=== PATIENT | male | born 1955 | race Caucasian/White ===

== ENCOUNTER 2018-10-27 08:09 | Inpatient (IN) | payer BC ==
--- NOTE | 2018-10-27 08:38 | ED PDOC ---
Arrival/HPI - General Chief Complaint: Chest Pain Time Seen by Provider: 10/27/18 08:33 Historian: Patient, Spouse - History of Present Illness Narrative History of Present Illness (Text): 10/27/18 08:34 Patient with history of hypertension, Hyperlipidemia, AR S/P Stent x3 [address] Barbosa (on DAPT) who presents to [facility] emergency room for evaluation accompanied by his presents for chest pain x2 days. Patient reports the pain is "burning" in quality, localized to left of his sternum, non-radiating, and 8/10 in severity. Patient says the pain is intermittent with no provoking and/or alleviating factors. Patient admits to associated shortness of breath, but otherwise denies nausea, vomiting, diaphoresis, and/or headache. Catalog Library Assistant: Dr. Flowers Time/Duration: < week, Other (2 days ) Symptom Course: Intermittent Severity Level: 8 Activities at Onset: Rest Past Medical History - Provider Review Nursing Documentation Reviewed: Yes - Cardiac Hx AR: Yes Hx Hypertension: Yes - Psychiatric Hx Depression: No Hx Emotional Abuse: No Hx Physical Abuse: No Hx Substance Use: No - Surgical History Hx Coronary Stent: Yes (X3) - Suicidal Assessment Feels Threatened In Home Enviroment: No Family/Social History - Physician Review Nursing Documentation Reviewed: Yes Family/Social History: Unknown Family HX Smoking Status: Heavy Smoker > 10 Cigarettes Daily Hx Alcohol Use: No Hx Substance Use: No Hx Substance Use Treatment: No Allergies/Home Meds Allergies/Adverse Reactions: Allergies No Known Allergies Allergy (Verified 10/27/18 08:16) Home Medications: Home Meds Medication Instructions Recorded Confirmed Aspirin [Aspir 81] 81 mg PO DAILY 03/02/12 10/27/18 Ramipril 1 tab PO DAILY 03/19/14 10/27/18 Clopidogrel [Plavix] 75 mg PO DAILY 10/27/18 10/27/18 Ezetimibe [Zetia] 10 mg PO DAILY 10/27/18 10/27/18 Metoprolol Tartrate [Lopressor] 50 mg PO BID 10/27/18 10/27/18 Review of Systems - Review of Systems Constitutional: absent: Fatigue, Weight Change, Fevers Eyes: absent: Vision Changes ENT: absent: Hearing Changes Respiratory: SOB. absent: Cough, Sputum, Wheezing Cardiovascular: Chest Pain. absent: Palpitations, Edema, Calf Pain, Syncope Gastrointestinal: absent: Abdominal Pain, Stool Changes, Diarrhea, Nausea, Vomiting Genitourinary Male: Normal Musculoskeletal: Normal. absent: Back Pain, Neck Pain Skin: Normal Neurological: Normal Endocrine: absent: Diaphoresis Hemo/Lymphatic: Normal Physical Exam Vital Signs Temp Pulse Resp BP Pulse Ox 10/27/18 08:09 98.1 F 76 19 122/68 99 Temperature: Afebrile Blood Pressure: Normal Pulse: Regular Respiratory Rate: Normal Appearance: Positive for: Non-Toxic, Comfortable Pain Distress: None Mental Status: Positive for: Alert and Oriented X 3 - Systems Exam Head: Present: Atraumatic, Normocephalic Pupils: Present: PERRL Extroacular Muscles: Present: EOMI Conjunctiva: Present: Normal Mouth: Present: Moist Mucous Membranes Neck: Present: Normal Range of Motion Respiratory/Chest: Present: Clear to Auscultation, Good Air Exchange. No: Respiratory Distress, Accessory Muscle Use Cardiovascular: Present: Regular Rate and Rhythm, Normal S1, S2, Peripheal Pulses Present. No: Murmurs, Irregular Rhythm, Tachycardic, Bradycardic, Rub, Gallop, Muffled Abdomen: Present: Normal Bowel Sounds. No: Tenderness, Distention, Peritoneal Signs Back: Present: Normal Inspection Upper Extremity: Present: Normal Inspection, Normal ROM. No: Cyanosis, Edema Lower Extremity: Present: Normal Inspection. No: Edema Neurological: Present: GCS=15, CN II-XII Intact, Speech Normal Skin: Present: Warm, Dry, Normal Color. No: Rashes Medical Decision Making ED Course and Treatment: 10/27/18 08:48 Patient with history of hypertension, Hyperlipidemia, AR S/P Stent x3 in 2011 w radha Barbosa (on DAPT) who presents with chest pain x2 days PLAN: - Troponin I - CBC - CMP - Mg - Phos - Chest X-ray - TSH - EKG 10/27/18 09:52 - CBC: unremarkable - CMP: unremarkable (Troponin I = 0.03) - Chest X-ray unremarkable for acute disease (read by me) 10/27/18 09:[address] Zamarripa (Patient's PMD) to admit for observation under his service; pending call back. 10/27/18 10:[address] Zamarripa who accepts the Patient to be admitted for observation under his service. Requested to consult Dr. Flowers Cardiology. Disposition/Present on Arrival - Present on Arrival Any Indicators Present on Arrival: No History of DVT/PE: No History of Uncontrolled Diabetes: No Urinary Catheter: No History of Decub. Ulcer: No History Surgical Site Infection Following: None - Disposition Have Diagnosis and Disposition been Completed?: Yes Diagnosis: Chest pain Disposition: HOSPITALIZED Disposition Time: 10:51 Patient Plan: Observation Condition: FAIR Discharge Instructions (ExitCare): Chest Pain (ED) Forms: [employer] (Malagasy)
[2018-10-27 09:23] LABS: BASO # 0.04 K/mm3 (0.0-2.0); BASO % 0.6 % (0.0-3.0); EOS # 0.4 (0.0-0.7); EOS % 6.4 % (1.5-5.0); LYMPH # 2.3 (1.2-3.4); LYMPH % 35.5 % (22.0-35.0); MEAN CELL VOLUME 91.6 fl (80.0-105.0); MEAN CORPUSCULAR HEMOGLOBIN 30.7 pg (25.0-35.0); MEAN CORPUSCULAR HGB CONC 33.5 g/dl (31.0-37.0); MEAN PLATELET VOLUME 10.4 fl (7.0-11.0); MONO # 0.6 (0.1-0.6); MONO % 9.6 % (1.0-6.0); RBC 4.89 10^6/uL (3.5-6.1); WHITE BLOOD COUNT 6.6 10^3/uL (4.5-11.0)
[2018-10-27 09:31] LABS: ALB/GLOB RATIO 1.3 (1.1-1.8); ALBUMIN 3.8 g/dL (3.0-4.8); ALT/SGPT 26 U/L (7-56); AST/SGOT 29 U/L (17-59); BLOOD UREA NITROGEN 17 mg/dL (7-21); GFR NON-AFRICAN AMERICAN > 60; INR 1.14; PARTIAL THROMBOPLASTIN TIME 29.7 Seconds (26.9-38.3); PROTHROMBIN TIME 12.9 SECONDS (9.4-12.5)
[2018-10-27 09:42] LABS: TROPONIN I 0.03 ng/mL
--- NOTE | 2018-10-27 12:03 | RAD ---
Date of service: 10/27/2018 HISTORY: Chest pain COMPARISON: No prior. FINDINGS: LUNGS: No active pulmonary disease. PLEURA: No significant pleural effusion identified, no pneumothorax apparent. CARDIOVASCULAR: No atherosclerotic calcification present No radiographic findings to suggest acute or significant cardiovascular disease. OSSEOUS STRUCTURES: No significant abnormalities. VISUALIZED UPPER ABDOMEN: Normal. OTHER FINDINGS: None. IMPRESSION: No active disease.
[2018-10-27] MEDS ORDERED: Pneumococcal 23-Valent Vaccine IM ONE (17:41)
[2018-10-27] MEDS ORDERED: Influenza Vaccine 60 mcg/0.5 mL SYR (4YR UP) IM ONE (17:41)
[2018-10-27 17:42] VITALS: BMI 24.4
[2018-10-27 17:47] LABS: TROPONIN I 0.07 ng/mL
[2018-10-27] MEDS ORDERED: Arformoterol 15 mcg/2 ml Inh Sol IH SCH (20:00)
[2018-10-27] MEDS: Arformoterol 15 mcg/2 ml Inh Sol IH SCH (20:22)
[2018-10-27] MEDS: Budesonide 0.5 mg/2 ml Inhal Susp UD IH SCH (20:22)
[2018-10-27 22:34] LABS: OPIATES, UR NEGATIVE (NEGATIVE)
[2018-10-27 22:51] LABS: BARBITURATES, UR NEGATIVE (NEGATIVE); BENZODIAZEPINES, UR NEGATIVE (NEGATIVE); PHENCYCLIDINE, UR NEGATIVE (NEGATIVE)
[2018-10-28] MEDS: Budesonide 0.5 mg/2 ml Inhal Susp UD IH SCH ×2 (07:55→20:21)
[2018-10-28] MEDS: Arformoterol 15 mcg/2 ml Inh Sol IH SCH ×2 (07:55→20:21)
[2018-10-28] MEDS ORDERED: Enoxaparin 40 mg Syringe SC SCH (10:00)
--- NOTE | 2018-10-28 10:28 | CARD ---
APPROVED REPORT Date of service: 10/27/2018 EKG Measurement Heart [id number] <Conclusion> Normal sinus rhythm Septal infarct, age undetermined Abnormal ECG
--- NOTE | 2018-10-28 11:55 | US ---
Date of service: 10/28/2018 HISTORY: Chest pain, dyspepsia. COMPARISON: None. TECHNIQUE: Sonographic evaluation of the right upper quadrant of the abdomen. FINDINGS: LIVER: Measures 14.6 cm in length. Hepatopedal blood flow. Fatty infiltration manifest ultrasonographically as increased echogenicity of the liver parenchyma. No mass. No intrahepatic bile duct dilatation. GALLBLADDER: Unremarkable. No gallstones. COMMON BILE DUCT: Measures 0.6 mm. No stones. No dilatation. PANCREAS: Unremarkable as visualized. No mass. No ductal dilatation. RIGHT KIDNEY: Measures 5.5 x 11.7 cm in length. Normal echogenicity. No calculus, mass, or hydronephrosis. Incidental subcentimeter cyst midpole region AORTA: No aneurysmal dilatation. IVC: Unremarkable. OTHER FINDINGS: None . IMPRESSION: No significant or acute findings to account for/ related to the clinical presentation.
--- NOTE | 2018-10-28 20:06 | PN ---
DATE: 10/28/2018 SUBJECTIVE: The patient was seen today on 10/28/2018. He is comfortable. In no distress. He did get some chest discomfort last night. He got 3 nitroglycerin with no relief. The patient has no other complaints. PHYSICAL EXAMINATION VITAL SIGNS: Temperature 98.3, heart rate 66, blood pressure 113/75, respirations 20, saturating 97% on room air. HEAD AND NECK: Normal. No JVD. No thyromegaly. CHEST: Clear bilateral. CARDIAC: First sound and second sound normal. No murmur, rub or gallop. ABDOMEN: Soft, nontender. EXTREMITIES: No edema. NEUROLOGICAL: Normal. LABORATORY DATA: His troponin 0.03 and repeat 0.07 and last one 0.05. TSH 1.1. IMPRESSION AND PLAN: 1. Chest pain, etiology unclear. Cardiology, Dr. Perry seen the patient today. We will see his recommendations. We will keep the patient n.p.o. after midnight for possible nuclear stress test in the morning. The patient is still complaining of chest pain as per last night. Ultrasound of the gallbladder was negative and Pepcid was added at night with no relief of his symptoms. We will continue to monitor his condition. 2. Tobacco addiction. 3. Hypercholesteremia. 4. Chronic obstructive pulmonary disease. 5. Chronic osteoarthritis. Continue current medications. We will follow up clinically. CURRENT MEDICATIONS: Altace 5 mg, Brovana and Pulmicort, Lipitor 80 mg, Lopressor 50 mg b.i.d., Lovenox 40 mg subcu, Nicoderm every one daily, Plavix 75 mg, Protonix 40, Ultram 50 mg every 6 hours, and Zetia 10 mg. PLAN: Continue current medications. We will discuss results with Dr. Perry. Pollo Zamarripa MD cc: Cynthia Flowers MD
--- NOTE | 2018-10-29 01:48 | CON ---
DATE: 10/28/2018 CARDIOLOGY CONSULTATION REASON FOR CONSULTATION: Chest pain. HISTORY OF PRESENT ILLNESS: The patient is a 63-year-old [place] male who has a history of coronary artery disease, history of coronary stenting 3 times in the past, most recent one was in 2011. The patient was recommended to undergo cardiac catheterization after positive stress test, but he refused. The patient is in because of recurring burning retrosternal chest pain. The patient continues to smoke almost a pack daily, but claims to be compliant with his medications. SOCIAL HISTORY: This patient is a smoker, nondrinker. , lives with his . MEDICATIONS: Altace 5 mg once a day, Brovana 15 mcg inhalation q.12h., aspirin 81 mg once a day, Lipitor 80 mg once a day, Lopressor 25 mg once a day, subcutaneous Lovenox 40 g daily, Nicoderm patch, Protonix 40 mg intravenously once a day, Plavix 75 g once a day. REVIEW OF SYSTEMS: No nausea or vomiting. No fever or chills. No dizziness or syncope. PAST MEDICAL HISTORY: Coronary artery disease, status post coronary stenting. PHYSICAL EXAMINATION: GENERAL: The patient is a middle-aged male who does not appear to be in acute distress. VITAL SIGNS: Blood pressure 129/86, heart rate 66, temperature 98.3, respirations 20. HEENT: Normocephalic. CHEST: Clear. HEART: S1, S2 regular. ABDOMEN: Soft. EXTREMITIES: No edema. LABORATORY DATA: Three sets of troponins were as follows: 0.03, 0.07, and 0.05. SMA-7 is within normal limits except for glucose 121 and creatinine 0.6. TSH level is within normal limits. Urine drug screen is negative. Hemoglobin, hematocrit, white count and platelet count are within normal limits. EKG revealed sinus rhythm with old septal infarct. ASSESSMENT: 1. Chest pain with borderline troponin elevation, consider underlying coronary artery disease. 2. Hypertension and hyperlipidemia. RECOMMENDATIONS: Continue current aspirin 81 mg once a day, Plavix 75 mg once a day, Lovenox 40 mg subcutaneous once a day, Lopressor 50 mg twice a day, Altace 5 mg once a day, Zetia 10 mg once a day. The patient was advised to undergo cardiac catheterization. However, he refused and he did state to me that he refused that in the past. The patient was instructed to wait until he is further evaluated by his assistant front office manager, Dr. Flowers tomorrow. Uriel Perry MD
--- NOTE | 2018-10-29 07:48 | CP.PCM.PN ---
Subjective - Date & Time of Evaluation Date of Evaluation: 10/29/18 Time of Evaluation: 06:15 - Subjective Subjective: Awake, alert, ambulating to bathroom, denies chest pain Reason for consultation and follow up: Cardiac evaluation of chest pain, history of coronary artery disease post stents Seen and examined by me and Dr. Cheng Objective - Vital Signs/Intake and Output Vital Signs (last 24 hours): Temp Pulse Resp BP Pulse Ox 98.3 F 67 16 109/72 95 10/29/18 00:01 10/29/18 05:51 10/29/18 00:01 10/29/18 00:01 10/29/18 00:01 Intake and Output: 10/29/18 10/29/18 06:59 18:59 Intake Total 960 Balance 960 - Medications Medications: Current Medications Arformoterol Tartrate (Brovana) 15 mcg [facility] [id number] [facility] Last Admin: 10/28/18 20:21 Dose: 15 mcg Aspirin (Ecotrin) 81 mg PO DAILY [facility] Last Admin: 10/28/18 11:16 Dose: 81 mg Atorvastatin Calcium (Lipitor) 80 mg PO DIN [facility] Last Admin: 10/28/18 17:57 Dose: 80 mg Budesonide (Pulmicort Respules) 0.5 mg [facility] [id number] [facility] Last Admin: 10/28/18 20:21 Dose: 0.5 mg Clopidogrel Bisulfate (Plavix) 75 mg PO DAILY [facility] Last Admin: 10/28/18 11:18 Dose: 75 mg Ezetimibe (Zetia) 10 mg PO DAILY [facility] Last Admin: 10/28/18 11:18 Dose: 10 mg Enoxaparin Sodium (Lovenox) 40 mg SC DAILY [facility]; Protocol Last Admin: 10/28/18 11:17 Dose: 40 mg Famotidine (Pepcid) 40 mg PO HS [facility] Last Admin: 10/28/18 21:26 Dose: 40 mg Metoprolol Tartrate (Lopressor) 50 mg PO BID [facility] Last Admin: 10/28/18 17:58 Dose: 50 mg Nicotine (Nicoderm Cq) 1 patch TD DAILY [facility] Last Admin: 10/28/18 11:17 Dose: 1 patch Pantoprazole Sodium (Protonix Inj) 40 mg IVP DAILY [facility] Last Admin: 10/28/18 11:18 Dose: 40 mg Ramipril (Altace) 5 mg PO DAILY [facility] Last Admin: 10/28/18 11:16 Dose: 5 mg Tramadol HCl (Ultram) 50 mg PO Q6H PRN PRN Reason: mod to severe pain Last Admin: 10/28/18 21:26 Dose: 50 mg - Labs Labs: 10/27/18 08:50 10/27/18 08:50 PT 12.9 SECONDS (9.4-12.5) H 10/27/18 08:50 INR 1.14 10/27/18 08:50 APTT 29.7 Seconds (26.9-38.3) 10/27/18 08:50 - Constitutional Appears: Non-toxic, No Acute Distress - Head Exam Head Exam: NORMAL INSPECTION, NORMOCEPHALIC - Eye Exam Eye Exam: Normal appearance Pupil Exam: NORMAL ACCOMODATION - ENT Exam ENT Exam: Mucous Membranes Moist, Normal Exam - Respiratory Exam Respiratory Exam: Decreased Breath Sounds, Clear to Ausculation Bilateral, NORMAL BREATHING PATTERN - Cardiovascular Exam Cardiovascular Exam: REGULAR RHYTHM, +S1, +S2 Additional comments: denies chest pain - GI/Abdominal Exam GI & Abdominal Exam: Soft, Normal Bowel Sounds - Extremities Exam Extremities Exam: Full ROM, Normal Capillary Refill - Neurological Exam Neurological Exam: Alert, Awake, Oriented x3 - Psychiatric Exam Psychiatric exam: Normal Affect, Normal Mood - Skin Skin Exam: Dry, Normal Color, Warm Assessment and Plan - Assessment and Plan (Free Text) Assessment: A 63 year old male who came in to the ER due to complaints of localized left non-radiating chest pain for the past 2 days. History of hypertension, hyp erlipidemia, coronary artery disease post stents, current smoker. Indeterminate Troponin on admission. Stress test done last 03/19/14 showed fixed abnormal distal anterior and apicla defects suggestive of previous [place]. LVEF 76%. No recent echocardiogram. Will order echo. For cardiac catheterization today. Dr. Cheng explained risk and benefits of procedure. Plan: Denies chest pain, For echo today to evaluate LV function For cardiac catheterization to evaluate coronary disease Heart rate stable Blood pressure stable On ASA 81 mg daily, Lipitor 80 mg daily,Plavix 75 mg daily Altace 5 mg daily,Lovenox 40 mg daily, Lopressor 50 mg BID Nicotine patch daily Continue current treatment Continue current medications Smoking cessation Will follow up Further recommendations post cardiac catheterization Plan and treatment discussed with Dr. cheng
[2018-10-29] MEDS: Budesonide 0.5 mg/2 ml Inhal Susp UD IH SCH ×2 (08:10→19:35)
[2018-10-29] MEDS: Arformoterol 15 mcg/2 ml Inh Sol IH SCH ×2 (08:10→19:35)
--- NOTE | 2018-10-29 08:20 | HP ---
DATE OF EXAM: 10/27/2018 Sofia is a 63-year-old male who came in with the main complaint of chest pain complaints. The admit is dated 10/25/2018. The patient was seen on 10/27/2018. CHIEF COMPLAINT: Main complaint chest pain. HISTORY OF PRESENT ILLNESS: This is a 63-year-old male with history of cardiac stenting, history of [place] past 6 years ago with cardiac stenting. He has been on Plavix, cholesterol medications. He is actively smoking, came in with left side chest pain intermittently for the last month, pain is more on the left side and it goes up a little bit in the arm, but no short of breath. No nausea and no sweating. He did feel sometimes occasionally palpitations. No other symptoms. He is noncompliant with the outpatient care, last time seeing Cardiology more than 2 years ago. ALLERGIES: NO KNOWN ALLERGIES. SOCIAL HISTORY: Still smoking. No drinking. FAMILY HISTORY: Noncontributory. HOME MEDICATIONS: He takes Altace 5 mg once a day, aspirin 81 mg, Lipitor 80 mg, Lopressor 50 mg b.i.d., Plavix 75 mg once a day, Protonix 40 mg once a day, Tramadol every 6 hours p.r.n. and Zetia 10 mg once a day. REVIEW OF SYSTEMS: Noted for joint pain, knee pain, back pain, shoulder pain and sometimes chronic cough. No other symptoms. The rest of the exam is negative. He does sometimes complain of chest burning, this especially at night, waking him at night sometimes. Rest of review of systems is negative. LABORATORY DATA: White count 6.6, hemoglobin 15, hematocrit 44.8 and platelet 227. Chemistry; sodium 141, potassium 3.7, chloride 106, bicarb 26, BUN 17, creatinine 0.6, blood sugar 121, calcium 9, phosphorous 3.3, magnesium 2.1 and total bili 0.3. AST, ALT and alk phos is normal. Lactate dehydrogenase is 4000, total CK 111 and troponin 0.03. The patient has an EKG, which shows anterior infarction is age undetermined, normal sinus rhythm, QTC 429. Chest x-ray; the patient had chest x-ray that shows largely active pulmonary disease. IMPRESSION AND PLAN: This is a 63-year-old male, actively smoking who had a history of cardiac disease, history of myocardial infarction, history of cardiac stenting more than 5 years ago. 1. The patient came in with left side chest pain intermittently getting worse. Pain sometimes waking him up from sleep, sometimes there is burning in the chest, seemed recurrent, more frequent than before. We will admit the patient for cardiac evaluations with chest pain. We will get serial cardiac enzymes. We will get Cardiology consult with Dr. Flowers. 2. The patient also has hypercholesteremia, hypertension, chronic knee osteoarthritis. Still actively tobacco smoking, I spoke with him about quitting. We will continue that. We will rule out gastrointestinal etiology, we are going to add Pepcid 40 mg at bedtime. We will get an ultrasound of his gallbladder. We will advise to be 2 hours before going asleep. We will continue to monitor his symptoms. The patient will need a cardiac evaluation probably including a stress test because of high risk cardiac disease. Pollo Zamarripa MD
[2018-10-29] MEDS ORDERED: Lidocaine PF 2% (5 ml) Inj (For Cardiac Arrhy) ONE (14:24)
[2018-10-29] MEDS ORDERED: Verapamil 2 ML ONE (14:25)
[2018-10-29] MEDS ORDERED: Iohexol 350mgl/ml 50 ML ONE (14:25)
[2018-10-29] MEDS ORDERED: Iodixanol 320 MG/ML 200 ML BOTTLE IV ONE (14:25)
[2018-10-29] MEDS ORDERED: Heparin 2,000 ML IV ONE (14:26)
[2018-10-29] MEDS ORDERED: Midazolam 2 MG/2 ML VIAL ONE (14:35)
[2018-10-29] MEDS ORDERED: Eptifibatide 20 mg/10mL Inj IVP ONE (15:01)
[2018-10-29] MEDS ORDERED: Morphine 2 mg/ml ISec ONE (15:42)
[2018-10-29] MEDS ORDERED: Sodium Chloride 0.9% 1,000 ML IV SCH (16:00)
--- NOTE | 2018-10-29 16:42 | CPOSTOP ---
DATE: 10/29/2018 CARDIOVASCULAR LAB POSTPROCEDURE NOTE PHYSICIAN: Dr. Óscar Flowers. SOLICITING FREIGHT AGENT: RAY Victor. TYPE OF ANESTHESIA: Moderate conscious sedation total 2 mg of morphine, 3 mg of versed, 100 of fentanyl given, periodically. Started 1 mg Versed and 50 of fentanyl. PRE-PROCEDURE DIAGNOSIS: Unstable angina. PROCEDURE PERFORMED: 1. Left heart catheterization. 2. Stenting of proximal to mid LAD for in-stent restenosis. 3. Stenting of proximal RCA in-stent restenosis. FINDINGS: Two vessel disease 99% proximal LAD and proximal RCA in-stent restenosis 95 to 99% stenosis, preserved LV function. FINAL DIAGNOSES: Two vessels critical disease, proximal mid left anterior descending and proximal right coronary artery in-stent restenosis. POST PROCEDURE CONDITION: The patient's condition is stable. VASCULAR ACCESS SITE: Left radial. CLOSING DEVICE: TR-band. TOTAL RADIATION DOSE: 16820.40 milligray unit. FLUORO TIME: 14.3 minutes. Cynthia Flowers MD
[2018-10-29] MEDS: Morphine 2 mg/ml ISec IVP PRN ×2 (16:44→22:54)
--- NOTE | 2018-10-29 19:02 | CARD ---
APPROVED REPORT Date of service: 10/29/2018 Procedure(s) performed: Left Heart Catheterization PTCA with Stenting of Miod LAD with DANTE PTCA with Stenting of Proximal RCA with DANTE PRU..... 102 ( pt is sensitive to Plavix). HISTORY The patient is a 63 year-old male with a history of : previous HI (> 7 days), previous diagnostic cath, tobacco history() : The patient is a current smoker , previous PCI (The PCI date was 01/2009), hypertension , dyslipidemia , Hx of anteror wall HI( STEMI) 01/2009 and primary PTCA of LAD then staged PTCa of RCA in four weeks and had repeat cath on 08/03/2009 b/c of abnormal stress test, cath revealed patent Stents in LAD and RCA, who is active 1/2 to one pack smoker admitted with ACS/. Unsstable angia.. INDICATION The indication(s) include : unstable angina , non-STEMI . CASE TECHNIQUE The patient was brought urgently to the Cardiac Catheterization Laboratory in a fasting state and was prepped and draped in a sterile manner. The left wrist was infiltrated with 2% Lidocaine subcutaneous anesthesia. A 6FR GLIDESHEATH ACCESS KIT sheath was inserted into the left radial artery without difficulty. Coronary angiography was performed using coronary diagnostic catheters. The left coronary system was accessed and visualized with a Diagnostic ,5F JL 4 CATH DXT 100 CM catheter. The right coronary system was accessed and visualized with a Diagnostic ,5F JL 4 CATH DXT 100 CM catheter. The left ventricle was accessed and visualized with a 5F PIGTAIL 145 CATH DXT 110 CM catheter. Left ventricular/Aortic Valve gradient assessed on pullback. Left ventriculogram was performed in ABDALLA projection. Closure device was deployed with a Fr TR Band (Regular) without any complications. The patient tolerated the procedure well and there were no complications associated with the procedure. Vessel Analysis The patient's coronary anatomy is right dominant. The left main coronary artery is a large size vessel with diffuse calcification noted throughout this vessel and without significant stenosis. The left main bifurcates to the left anterior descending and circumflex. The left anterior descending artery is a medium size vessel with diffuse calcification noted throughout this vessel and with significant stenosis. There is a 99% stenosis in the mid segment. Instent restenosis The first diagonal branch is a small size vessel with diffuse calcification noted throughout this vessel and without significant stenosis. The second diagonal branch is a medium size vessel with diffuse calcification noted throughout this vessel and without significant stenosis. The third diagonal branch is a small size vessel with diffuse calcification noted throughout this vessel and without significant stenosis. First septal lead inspector has 80-90% stenosis. The circumflex artery is a medium size vessel with diffuse calcification noted throughout this vessel and without significant stenosis. The first obtuse marginal branch is a large size vessel with diffuse calcification noted throughout this vessel and without significant stenosis. The right coronary artery is a large size vessel with diffuse calcification noted throughout this vessel and with significant stenosis. There is a 95% stenosis in the proximal segment. Instent restenosis.Distal RCVA has 30-40% stenosis. The right posterior descending artery is a medium size vessel with diffuse calcification noted throughout this vessel and without significant stenosis. The right posterolateral branch is a small size vessel with diffuse calcification noted throughout this vessel and without significant stenosis. Left Ventricle The left ventricle is normal in size with normal contractility. There was no cardiomyopathy. The left ventricular ejection fraction is estimated to be 55-60%. The left ventricular end diastolic pressure is 14 mmHg. PCI Technique Lesion Anticoagulation was achieved with Heparin and Integrellin bolous. Percutaneous coronary intervention was performed on the proximal left anterior descending artery segment. The lesion stenosis prior to intervention was 99% with CARINE 2 flow. A 6 Fr XB 3.5 Guide Catheter was used to engage the ostium. A Luge 182 Interventional Guidewire was used to cross the lesion. BALLOON DILATION A Balloon catheter 2.5 x 12 mm Sprinter RX was inserted and inflated up to 12atm for 21seconds. STENT DEPLOYMENT A drug-eluting stent STENT RESOLUTE JUSTYNA 2.75 X18 was inserted and inflated up to 14.00atm for 12seconds. Final angiography reveals 0 % stenosis with CARINE 3 flow. PCI Technique Lesion 2 Percutaneous Coronary Intervention was performed on the proximal right coronary artery. The lesion stenosis prior to intervention was 95% with CARINE 2 flow. A 6 Fr XB 3.5 Guide Catheter was used to engage the ostium. BALLOON DILATION A Balloon catheter 2.5 x 12 mm Sprinter RX was inserted and inflated up to 16.00atm for 2seconds. STENT DEPLOYMENT A drug-eluting stent STENT RESOLUTE JUSTYNA 3.0 X 12 was inserted and inflated up to 16.00atm for 2seconds. Final angiography reveals 0 % stenosis with CARINE 3 flow. Conclusion Two vessel CAD Mid LAD and proximal RCA Instent restenosis. Preserved LV Fx. EF-55-60%, EDP-14 mmof Hg. First septal lead inspector has 80-90% stenosis. Successful PTCA with DANTE Of LAD aqnd RCA. PRU-102.... ( pt is sensitive to plavix) Recommendations Smoking Cessation Daily ASA with Plavix for at least one year Aggressive Medical TherapyCardiac Risk Reduction Program Weight Loss Reduction Program CC; dr. Zamarripa
[2018-10-29 20:05] LABS: BLOOD UREA NITROGEN 16 mg/dL (7-21); CALCIUM 8.9 mg/dL (8.4-10.5); GFR NON-AFRICAN AMERICAN > 60
[2018-10-29 20:12] LABS: BASO # 0.02 K/mm3 (0.0-2.0); BASO % 0.2 % (0.0-3.0); EOS % 0.3 % (1.5-5.0); HEMOGLOBIN 14.4 g/dL (14.0-18.0); LYMPH # 1.3 (1.2-3.4); LYMPH % 11.6 % (22.0-35.0); MEAN CELL VOLUME 91.6 fl (80.0-105.0); MEAN CORPUSCULAR HEMOGLOBIN 30.3 pg (25.0-35.0); MEAN PLATELET VOLUME 10.2 fl (7.0-11.0); MONO # 0.4 (0.1-0.6); MONO % 3.9 % (1.0-6.0); RBC 4.76 10^6/uL (3.5-6.1); RED CELL DISTRIBUTION WIDTH 14.1 % (11.5-14.5); WHITE BLOOD COUNT 10.9 10^3/uL (4.5-11.0)
[2018-10-29] MEDS ORDERED: Bacitracin 500 Units/gm Oint Foilpak UD ONE (20:37)
--- NOTE | 2018-10-29 22:37 | CARD ---
APPROVED REPORT Date of service: 10/29/2018 EKG Measurement Heart [id number] <Conclusion> Normal sinus rhythm Left anterior fascicular block Septal infarct, age undetermined Abnormal ECG
[2018-10-30 07:15] LABS: BASO # 0.02 K/mm3 (0.0-2.0); BASO % 0.2 % (0.0-3.0); EOS # 0.1 (0.0-0.7); HEMOGLOBIN 14.1 g/dL (14.0-18.0); LYMPH # 3.1 (1.2-3.4); LYMPH % 27.6 % (22.0-35.0); MEAN CELL VOLUME 90.7 fl (80.0-105.0); MEAN CORPUSCULAR HEMOGLOBIN 29.7 pg (25.0-35.0); MEAN CORPUSCULAR HGB CONC 32.8 g/dl (31.0-37.0); MEAN PLATELET VOLUME 10.4 fl (7.0-11.0); MONO # 0.7 (0.1-0.6); MONO % 6.3 % (1.0-6.0); RBC 4.74 10^6/uL (3.5-6.1); RED CELL DISTRIBUTION WIDTH 14.1 % (11.5-14.5); WHITE BLOOD COUNT 11.3 10^3/uL (4.5-11.0)
[2018-10-30 07:30] LABS: ALB/GLOB RATIO 1.3 (1.1-1.8); ALBUMIN 3.6 g/dL (3.0-4.8); ALT/SGPT 24 U/L (7-56); AST/SGOT 46 U/L (17-59); BLOOD UREA NITROGEN 12 mg/dL (7-21); CALCIUM 8.9 mg/dL (8.4-10.5); GFR NON-AFRICAN AMERICAN > 60
--- NOTE | 2018-10-30 07:32 | CP.PCM.PN ---
Subjective - Date & Time of Evaluation Date of Evaluation: 10/30/18 Time of Evaluation: 06:15 - Subjective Subjective: Awake, alert, some chest discomfort, denies chest pain Reason for consultation and follow up: Cardiac evaluation of chest pain, history of coronary artery disease post stents, post cardiac catheterization and post PTCA with DANTE of LAD and RCA. Seen and examined by me and Dr. Flowers Objective - Vital Signs/Intake and Output Vital Signs (last 24 hours): Temp Pulse Resp BP Pulse Ox 98.2 F 92 H 18 100/69 94 L 10/30/18 05:14 10/30/18 05:14 10/30/18 05:14 10/30/18 05:14 10/30/18 05:14 Intake and Output: 10/30/18 10/30/18 06:59 18:59 Intake Total 540 Balance 540 - Medications Medications: Current Medications Arformoterol Tartrate (Brovana) 15 mcg IH [id number] [facility] Last Admin: 10/29/18 19:35 Dose: 15 mcg Aspirin (Ecotrin) 81 mg PO DAILY [facility] Last Admin: 10/29/18 09:31 Dose: 81 mg Atorvastatin Calcium (Lipitor) 80 mg PO DIN [facility] Last Admin: 10/29/18 17:55 Dose: 80 mg Budesonide (Pulmicort Respules) 0.5 mg IH [id number] [facility] Last Admin: 10/29/18 19:35 Dose: 0.5 mg Clopidogrel Bisulfate (Plavix) 75 mg PO DAILY [facility] Last Admin: 10/29/18 09:33 Dose: 75 mg Ezetimibe (Zetia) 10 mg PO DAILY [facility] Last Admin: 10/29/18 17:55 Dose: 10 mg Enoxaparin Sodium (Lovenox) 40 mg SC DAILY [facility]; Protocol Last Admin: 10/28/18 11:17 Dose: 40 mg Famotidine (Pepcid) 40 mg PO HS [facility] Last Admin: 10/29/18 21:33 Dose: 40 mg Isosorbide Mononitrate (Imdur) 30 mg PO DAILY [facility] Metoprolol Tartrate (Lopressor) 50 mg PO BID [facility] Last Admin: 10/29/18 17:55 Dose: 50 mg Morphine Sulfate (Morphine) 2 mg IVP Q6H PRN PRN Reason: Pain, severe (8-10) Last Admin: 10/29/18 22:54 Dose: 2 mg Nicotine (Nicoderm Cq) 1 patch TD DAILY [facility] Last Admin: 10/29/18 09:33 Dose: 1 patch Pantoprazole Sodium (Protonix Ec Tab) 40 mg PO ACB ROSA MARIA Ramipril (Altace) 5 mg PO DAILY [facility] Last Admin: 10/29/18 17:55 Dose: 5 mg Tramadol HCl (Ultram) 50 mg PO Q6H PRN PRN Reason: Pain, moderate (4-7) Last Admin: 10/29/18 18:13 Dose: 50 mg - Labs Labs: 10/30/18 06:00 10/29/18 19:50 PT 12.9 SECONDS (9.4-12.5) H 10/27/18 08:50 INR 1.14 10/27/18 08:50 APTT 29.7 Seconds (26.9-38.3) 10/27/18 08:50 - Constitutional Appears: Non-toxic, No Acute Distress - Head Exam Head Exam: NORMAL INSPECTION, NORMOCEPHALIC - Eye Exam Eye Exam: Normal appearance Pupil Exam: NORMAL ACCOMODATION - ENT Exam ENT Exam: Mucous Membranes Moist, Normal Exam - Respiratory Exam Respiratory Exam: Decreased Breath Sounds, Clear to Ausculation Bilateral, NORMAL BREATHING PATTERN - Cardiovascular Exam Cardiovascular Exam: REGULAR RHYTHM, +S1, +S2 Additional comments: denies chest pain, some discomfort - GI/Abdominal Exam GI & Abdominal Exam: Soft, Normal Bowel Sounds - Extremities Exam Extremities Exam: Full ROM, Normal Capillary Refill Additional comments: left radial no hematoma, positive pulses, no bleeding - Neurological Exam Neurological Exam: Alert, Awake, Oriented x3 - Psychiatric Exam Psychiatric exam: Normal Affect, Normal Mood - Skin Skin Exam: Dry, Normal Color, Warm Assessment and Plan - Assessment and Plan (Free Text) Assessment: A 63 year old male who came in to the ER due to complaints of localized left non-radiating chest pain for the past 2 days. History of hypertension, hyperlipidemia, coronary artery disease post stents, current smoker. Indeterminate Troponin on admission. Stress test done last 03/19/14 showed fixed abnormal distal anterior and apical defects suggestive of previous CA. LVEF 76%. For Echo to evaluate LV function. Post cardiac catheterization yesterday with two vessel coronary artery disease, Mid LAD and Proximal RCA instent restenosis, successful PTCA with DANTE of LAD and RCA via left radial. Complaining some chest discomfort probably from coronary spasm post procedure, will start Imdur. Denies chest pain. Cardiac status stable. Discharge planning. Plan: Post cardiac catheterization and PTCA with DANTE of LAD and RCA Denies chest pain, some chest discomfort Started on Imdur For echo today to evaluate LV function Heart rate stable Blood pressure stable Cardiac status stable Will discontinue telemetry May discharge from cardiac standpoint On ASA 81 mg daily, Lipitor 80 mg daily,Plavix 75 mg daily Altace 5 mg daily,Lovenox 40 mg daily, Lopressor 50 mg BID Nicotine patch daily Continue current treatment Continue current medications Smoking cessation Discharge planning, follow up in office Will follow up Plan and treatment discussed with Dr. Flowers
[2018-10-30] MEDS: Budesonide 0.5 mg/2 ml Inhal Susp UD IH SCH ×2 (07:34→19:50)
[2018-10-30] MEDS: Arformoterol 15 mcg/2 ml Inh Sol IH SCH ×2 (07:34→19:50)
[2018-10-30] MEDS: Pantoprazole 40 mg EC Tab PO SCH (08:35)
--- NOTE | 2018-10-30 11:40 | CT ---
Date of service: 10/30/2018 PROCEDURE: CT Chest without contrast HISTORY: chest pain COMPARISON: Chest x-ray 10/27/2018 TECHNIQUE: Contiguous axial images were obtained through the chest without intravenous contrast enhancement. Sagittal and coronal reconstructions were performed. Radiation dose: Total exam DLP = 485.8 mGy-cm. This CT exam was performed using one or more of the following dose reduction techniques: Automated exposure control, adjustment of the mA and/or kV according to patient size, and/or use of iterative reconstruction technique. FINDINGS: LUNGS: There is a large dense soft tissue mass in the left lung apex which measures 56 Hounsfield units in density. This measures 6.2 cm height by 7.1 cm wide by 7.8 cm AP. This finding was not present on the recent chest x-ray. This is suspicious for a hematoma. The patient had recent cardiac catheterization. Clinical correlation is suggested regarding the access route for catheterization. MEDIASTINUM: Unremarkable thoracic aorta. No aneurysm. Normal sized heart. Main pulmonary artery unremarkable. No vascular congestion. No lymphadenopathy. No aortic atherosclerotic calcification. PLEURA: There is a small left-sided pleural effusion BONES: No fracture. No destructive lesion. UPPER ABDOMEN: Grossly unremarkable. OTHER FINDINGS: Dr. Zamarripa was paged regarding with these results at 11:30 a.m. IMPRESSION: There is a large dense soft tissue mass in the left lung apex which measures 56 Hounsfield units in density. This measures 6.2 cm height by 7.1 cm wide by 7.8 cm AP. This finding was not present on the recent chest x-ray. This is suspicious for hematoma. The patient had recent cardiac catheterization. Clinical correlation is suggested regarding the access route for catheterization.
--- NOTE | 2018-10-30 13:47 | PN ---
DATE: 10/29/2018 SUBJECTIVE: The patient is status post cardiac catheterization with two stents . The patient still has some chest pain. According to Dr. Flowers, the chest pain he has now is different than . The patient is otherwise stable. PHYSICAL EXAMINATION: VITAL SIGNS: Temperature 98, heart rate 93, blood pressure 122/82, respirations 18, saturation 96% on room air. HEAD AND NECK: Normal. No JVD. No thyromegaly. CHEST: Clear bilateral. CARDIAC: First sound and second sound normal. No murmur, rub or gallop. ABDOMEN: Soft, nontender. EXTREMITIES: No edema. NEUROLOGICAL: Normal. LABORATORY DATA: White count 10.9, hemoglobin 15.4, hematocrit 43.6, platelets 210. Chemistry: Sodium 139, potassium 4.6, chloride 106, bicarb 27, BUN 16, creatinine 0.6. Blood glucose 145, calcium 8.9. ASSESSMENT AND PLAN: 1. Chest pain status post cardiac cath with two stents placed. 2. Hypertension. The patient is stable. Continue current blood pressure medication. The patient is getting Lopressor 50 mg twice a day. 3. Hypercholesterolemia, 80 mg per dinner. Continue that. 4. Chronic obstructive pulmonary disease. Continue Brovana, Pulmicort. 5. Chronic osteoarthritis. Continue Ultram. MEDICATIONS: Continue current medications, which include the following: Altace 5 mg p.o. daily, Brovana b.i.d., Ecotrin 81 once a day, Imdur 30 p.o. daily, Lipitor 80 p.o. dinner, Lopressor 50 b.i.d., Lovenox has been on hold, 40 subcu; morphine 2 mg IV every 6 hours p.r.n. for chest pain, Nicoderm patch, Pepcid, Plavix, Protonix, Pulmicort, Ultram and Zetia 10. Continue current therapy. Pollo Zamarripa MD
[2018-10-30] MEDS ORDERED: Bisacodyl 5mg EC Tab PO PRN (19:02)
--- NOTE | 2018-10-30 21:44 | CARD ---
APPROVED REPORT Date of service: 10/30/2018 EKG Measurement Heart [id number] <Conclusion> Sinus rhythm with occasional premature ventricular complexes Left anterior fascicular block Anteroseptal infarct, age undetermined Abnormal ECG
--- NOTE | 2018-10-30 22:51 | CARD ---
APPROVED REPORT Date of service: 10/30/2018 EXAM: Two-dimensional and M-mode echocardiogram with Doppler and color Doppler. INDICATION Chest Pain LVFX 2D DIMENSIONS Left Atrium (2D)4.2 (1.6-4.0cm)IVSd1.5 (0.7-1.1cm) LVDd4.1 (3.9-5.9cm)PWd1.5 (0.7-1.1cm) LVDs2.7 (2.5-4.0cm)FS (%) 33.3 % LVEF (%)62.3 (>50%) M-Mode DIMENSIONS Aortic Root4.00 (2.2-3.7cm)Aortic Cusp Exc.2.40 (1.5-2.0cm) Aortic Valve AoV Peak Vcopzxes764.0cm/sAoV VTI34.9cmAO Peak GR.16mmHg LVOT Peak Tnbxqwqp311.0cm/sLVOT VTI26.60cmAO Mean GR.7mmHg Mitral Valve MV E Pbgoapli39.9cm/sMV A Unbmxpco79.0cm/sE/A ratio1.1 TDI Lateral E' Peak V11.50cm/sMedial E' Peak V7.02cm/sE/Lateral E'5.5 E/Medial E'9.0 Pulmonary Valve PV Peak Eavylzjx96.1cm/sPV Peak Grad.2mmHg Tricuspid Valve TR Peak Uuxzpqnu318vf/sRAP OECMPJIC23deOrXY Peak Gr.24mmHg [id number] LEFT VENTRICLE The left ventricle is normal size. There is mild concentric left ventricular hypertrophy. The left ventricular function is normal.Ef-55-60% There is normal LV segmental wall motion. Transmitral Doppler flow pattern is Grade II-pseudonormal filling dynamics. No left ventricle thrombus noted on this study. There is no ventricular septal defect visualized. There is no left ventricular aneurysm. There is no mass noted in the left ventricle. RIGHT VENTRICLE The right ventricle is normal size. There is normal right ventricular wall thickness. The right ventricular systolic function is normal. ATRIA The left atrium is mildly dilated. The right atrium size is normal. The interatrial septum is intact with no evidence for an atrial septal defect. AORTIC VALVE The aortic valve is thickened but opens well. There is trace aortic regurgitation. There is no aortic valvular stenosis. There is no aortic valvular vegetation. MITRAL VALVE The mitral valve is thickened but opens well. Mitral regurgitation is trace. There is no mitral valve stenosis. There is no evidence of mitral valve prolapse. TRICUSPID VALVE The tricuspid valve leaflets are thickened , but open well. There is mild tricuspid regurgitation.RVSP-34 mm of Hg There is no tricuspid valve stenosis. There is no tricuspid valve prolapse or vegetation. PULMONIC VALVE The pulmonary valve is normal in structure. There is trace pulmonic valvular regurgitation. There is no pulmonic valvular stenosis. GREAT VESSELS The aortic root is normal in size. The ascending aorta is normal in size. The pulmonary artery is normal. The IVC is normal in size and collapses >50% with inspiration. PERICARDIAL EFFUSION There is no pleural effusion. There is no pericardial effusion. <Conclusion> The left ventricle is normal size. There is mild concentric left ventricular hypertrophy. The left ventricular function is normal.Ef-55-60% There is trace aortic regurgitation. Mitral regurgitation is trace. There is mild tricuspid regurgitation.RVSP-34 mm of Hg The IVC is normal in size and collapses >50% with inspiration. There is no pericardial effusion.
[2018-10-31 07:08] VITALS: O2SAT 20
[2018-10-31] MEDS: Pantoprazole 40 mg EC Tab PO SCH (07:49)
[2018-10-31] MEDS: Arformoterol 15 mcg/2 ml Inh Sol IH SCH (08:18)
[2018-10-31] MEDS: Budesonide 0.5 mg/2 ml Inhal Susp UD IH SCH (08:18)
--- NOTE | 2018-10-31 10:40 | CT ---
Date of service: 10/31/2018 PROCEDURE: CT Chest without contrast HISTORY: hematoma, compare from previous COMPARISON: TECHNIQUE: Contiguous axial images were obtained through the chest without intravenous contrast enhancement. Sagittal and coronal reconstructions were performed. Radiation dose: Total exam DLP = 498.42 mGy-cm. This CT exam was performed using one or more of the following dose reduction techniques: Automated exposure control, adjustment of the mA and/or kV according to patient size, and/or use of iterative reconstruction technique. FINDINGS: LUNGS: No significant change in a dense mass in the left upper lobe possibly representing a hematoma. No change in moderate size left pleural effusion. MEDIASTINUM: Unremarkable thoracic aorta. No aneurysm. Normal sized heart. Main pulmonary artery unremarkable. No vascular congestion. No lymphadenopathy. No aortic atherosclerotic calcification. PLEURA: No pleural fluid. No pneumothorax. BONES: No fracture. No destructive lesion. UPPER ABDOMEN: Grossly unremarkable. OTHER FINDINGS: None. IMPRESSION: No significant interval change.
[2018-10-31] MEDS ORDERED: Apap-Butalbital-Caffeine 325-50-40mg Tab PO ONE (11:44)
[2018-10-31 12:17] VITALS: BP 92/60; PULSE 75; RESP 18; TEMP 97.9
--- NOTE | 2018-10-31 12:42 | PN ---
DATE: 10/31/2018 REASON FOR CONSULTATION: Acute coronary syndrome, unstable angina, status post PTCA of in-stent restenosis of mid LAD and proximal RCA. SUBJECTIVE: The patient is still complaining of chest pain, more so on turning and twisting and taking a deep breath. OBJECTIVE: GENERAL: Appears in mild respiratory distress and complaining of a chest pain when taking a deep breath. VITAL SIGNS: Temperature afebrile, heart rate 99, blood pressure 98/59. HEENT: PERRLA. Extraocular muscles are intact. NECK: Supple. No carotid bruits. No thyromegaly. CHEST: Clear to auscultation. HEART: S1 and S2 regular. ABDOMEN: Soft. EXTREMITIES: Clubbing, cyanosis negative. LABORATORY DATA: Blood workup as follows: WBC 11.3, hemoglobin , hematocrit 43, platelets 214. Chemistry: Show sodium 130, potassium 3.9, chloride 104, carbon dioxide of 27, anion gap of 11, BUN 12, creatinine 0.6. CAT scan of the chest was done yesterday to assess etiology of the chest pain because it appears to be noncardiac, that shows large dense soft tissue mass in the left lung apex which measures 6.2 in height, 7.1 cm wide, and 7.5 cm AP. Finding not present on the previous chest x-ray, suspicious of hematoma, possibly related to cath access site. IMPRESSION: A 63-year-old male with past medical history significant for coronary artery disease, status post percutaneous transluminal coronary angioplasty in 01/2009, when the patient presented with acute ST elevation myocardial infarction of left anterior descending, and then four weeks later, the patient had staged angioplasty of right coronary artery done. Later on, the patient's repeat catheterization 08/03/2009 because of the abnormal stress test revealed patent stent. Admitted recently with acute coronary stent of unstable angina, active tobacco abuse. The patient underwent percutaneous transluminal coronary angioplasty of left anterior descending, mid and right coronary artery with new stent deployment. Postop course was complicated with the patient complaining of still chest pain. Yesterday,the patient underwent CT scan of the chest that was suspicious of hematoma in the apex; atypical chest pain. RECOMMENDATIONS: Continue analgesics. We will repeat CAT scan of the chest. Continue aspirin. Continue Plavix. The patient is sensitive to Plavix. PRU level is 102. Continue Plavix. Complete cessation of smoking. We will hold ramipril for systolic more than 130 and also cut down the metoprolol 25 mg p.o. b.i.d., repeat CAT scan to assess the progression of the hematoma. Thank you Dr. Zamarripa for providing us the opportunity in taking care of the patient, Gamaliel Black. Cynthia Flowers MD
--- NOTE | 2018-10-31 18:50 | PN ---
DATE: 10/30/2018 SUBJECTIVE: The patient was seen 10/30/2018, status post cardiac cath from the left forearm. The patient did complain of pain during the procedures and after the procedures. A CT scan was ordered for today and I discussed the results with the patient. The patient currently is still complaining of that pain, but it is different from his heart pain that he had before. No other complaints. PHYSICAL EXAMINATION VITAL SIGNS: Temperature 98.8, heart rate 87, blood pressure 101/64, respirations 19,and saturations 96% on room air. HEAD AND NECK: Normal. No JVD. No thyromegaly. CHEST: Clear bilateral. CARDIAC: First sound and second sound normal. No murmur, rub, or gallop. ABDOMEN: Soft and nontender. EXTREMITIES: No edema. NEUROLOGIC: Normal. LABORATORY DATA: White count 11.3, hemoglobin 14.1, hematocrit 43, and platelets 214. Chemistry; sodium 138, potassium is 3.9, chloride 104, bicarb 27, BUN 12, and creatinine 0.6. Liver function tests are normal. Radiological studies; CT scan of the chest was done and it showed a large dense soft tissue mass in the left lung apex, which measures 56 in density, 6.2 in height, 7.1 wide, and suspicious for hematoma. IMPRESSION AND PLAN 1. Hematoma in the soft tissue in the left lung apex area. We will continue followup. We will repeat CT scan in the morning. His hemoglobin is stable. Probably related to cardiac catheterization. I discussed with Dr. Flowers and Radiology. Just need followup. The patient is complaining of some pain, but stable. No respiratory distress. 2. Coronary artery disease status post cardiac catheterization, stable. We will continue Plavix. 3. Chronic obstructive pulmonary disease, smoker tobacco. Continue Nicorette patch. The patient will stop smoking. 4. Hypertension. Continue metoprolol. 5. Hypercholesterolemia. Continue current medications. PLAN: Continue current medicines. Repeat CT in morning and labs in the morning and followup clinically. Discontinue Lovenox. Continue SCD's for both lower extremities. Pollo Zamarripa MD
--- NOTE | 2018-10-31 23:39 | DS ---
HISTORY OF PRESENT ILLNESS: The patient is stable. No new complaints. PHYSICAL EXAMINATION: VITAL SIGNS: His temperature is 98, heart rate is 88, blood pressure is 114/80, and respirations are 18. HEAD AND NECK: Normal. No JVD. No thyromegaly. CHEST: Clear bilaterally. CARDIAC: First sound and second sound normal. No murmur, rub, or gallop. ABDOMEN: Soft and nontender. EXTREMITIES: No edema. NEUROLOGIC: Normal. LABORATORY DATA: The patient had labs pending. CT scan done today shows it was read as no change. No significant interval change. IMPRESSION AND PLAN: 1. Large hematoma in the left apex, probably as discussed with the radiologist, it is extrapulmonary outside. Continue to monitor the patient. 2. Coronary artery disease, status post stenting. Two stents put in. Plavix, the patient is okay with the Plavix , we do not have to change it to different one as per Dr. Flowers. 3. Hypertension. The patient's blood pressures runs in the low side, so we discontinue Altace, cut down metoprolol to 25 b.i.d. and we will see how the patient do. Discussed with the about it and we discussed with Dr. Flowers. 4. The patient has smoking history. We give him Nicorette patch and Nicorette gum. He will not smoke again. 5. Chronic obstructive pulmonary disease. 6. Hypercholesterolemia. 7. Chronic osteoarthritis. Continue tramadol p.r.n. We will give the patient Fioricet for headache. I will still continue to monitor the patient. I will see him on or Monday this coming one. Continue to monitor the patient as outpatient. The patient had a CT, no significant change. We adjusted the blood pressure medicine. We discontinue nitroglycerin because of headache and because of his blood pressure runs in the low side and decrease metoprolol to 25 b.i.d. and discontinue Altace. The patient encouraged p.o. drinking and we will followup in this week. Pollo Zamarripa MD [facility] # [id number]
== END 2018-10-31 13:35 | disposition home or self-care (01) | DRG 247 ==
LOC: ED 08:09 → ERH 12:04 → 3RSO 13:03 → ERH 20:49 → 2RSO 10-29 16:08 → OBSVTOIN 10-29 20:49 → 2RSO 10-30 22:34
PROVIDERS: ADMIT Internal Medicine; ATTEND Internal Medicine
PROC: 027135Z Dilation of Coronary Artery, Two Arteries with Two Drug-eluting Intraluminal Devices, Percutaneous Approach (ICD-10-PCS; principal; 2018-10-29)
PROC: 4A023N7 Measurement of Cardiac Sampling and Pressure, Left Heart, Percutaneous Approach (ICD-10-PCS; 2018-10-29)
PROC: B2151ZZ Fluoroscopy of Left Heart using Low Osmolar Contrast (ICD-10-PCS; 2018-10-29)
PROC: B2111ZZ Fluoroscopy of Multiple Coronary Arteries using Low Osmolar Contrast (ICD-10-PCS; 2018-10-29)
PROC: 3E033PZ Introduction of Platelet Inhibitor into Peripheral Vein, Percutaneous Approach (ICD-10-PCS; 2018-10-29)
DX: I21.4 Non-ST elevation (NSTEMI) myocardial infarction (principal); T82.855A Stenosis of coronary artery stent, initial encounter; I97.630 Postprocedural hematoma of a circulatory system organ or structure following a cardiac catheterization; I25.110 Atherosclerotic heart disease of native coronary artery with unstable angina pectoris; E78.00 Pure hypercholesterolemia, unspecified; I10 Essential (primary) hypertension; F17.200 Nicotine dependence, unspecified, uncomplicated; E78.5 Hyperlipidemia, unspecified; J44.9 Chronic obstructive pulmonary disease, unspecified; M17.10 Unilateral primary osteoarthritis, unspecified knee; Y83.1 Surgical operation with implant of artificial internal device as the cause of abnormal reaction of the patient, or of later complication, without mention of misadventure at the time of the procedure; Y83.8 Other surgical procedures as the cause of abnormal reaction of the patient, or of later complication, without mention of misadventure at the time of the procedure; I25.2 Old myocardial infarction; Z79.02 Long term (current) use of antithrombotics/antiplatelets; Z79.82 Long term (current) use of aspirin; Z91.19 Patient's noncompliance with other medical treatment and regimen

== ENCOUNTER 2018-11-01 10:12 | Outpatient (CLI) | payer BC | END 2018-11-01 10:13 | disposition home or self-care (01) | LOC: LAB 10:12 | DX: R04.89 Hemorrhage from other sites in respiratory passages (principal) ==

== ENCOUNTER 2018-11-08 10:36 | Outpatient (CLI) | payer BC | END 2018-11-08 10:37 | disposition home or self-care (01) | LOC: RAD 10:36 ==